=== PATIENT | male | born 1940 | race African-American/Black ===

== ENCOUNTER 2016-05-01 17:27 | Emergency (ER) | payer MEDICARE, MEDICAID ==
[~2016-05-01] VITALS: Ht 182.9 cm; Wt 65.8 kg
[~2016-05-01 17:27] MED LIST: ASPIR 8181 MG ORAL; DIOVAN160 MG ORAL; EYE DROPS15 M1 OP; HYDROCHLOROTHIA25 MG ORAL; HYDROCODON-ACE1 EAC4 ORAL; MULTIVITAMINS1 EAC8 ORAL; PAIN RELIEF325 MG PO; VIAGRA25 MG ORAL
[2016-05-01 17:30] VITALS: BP 141/88
--- NOTE | 2016-05-01 20:20 | Emergency Room Report ---
History of Present Illness General Chief Complaint: Edema Source: Patient Present Illness HPI 75-year-old male presents emergency department complaining of increased swelling in the right lower extremity x1 week with pain. Patient reports 6/10 severity pain mainly in the ankle, and describes tightness in the skin. denies posterior calf pain. Denies trauma or fall. Patient reports intermittent history of lower extremity edema however states it is not to this extent usually. Patient states pain is exacerbated upon weightbearing. Patient denies recent travel. Patient denies nausea, vomiting, fevers, chills. Patient reports mild erythema. Denies bruising or increase in temperature. Patient reports history of high blood pressure and smoking. Denies CP, Palpitations, LOC, AMS, dizziness, Changes in Vision, Sensation, paresthesias, or a sudden severe headache. Allergies: Coded Allergies: No Known Allergies (Verified , 03/05/09) Patient History Past Medical History: old chart reviewed Past Surgical History: none Pertinent Family History: none Social History: Reports: smoking Immunizations: UTD Reviewed Nursing Documentation: PMH: Agreed, PSxH: Agreed Nursing Documentation-PMH Past Medical History: No Stated History Hx Hypertension: Yes - PER RECORD Hx Cancer: No Hx Gastrointestinal Problems: Yes Hx Neurological Problems: No Review of Systems All Other Systems: negative except mentioned in HPI Physical Exam Vital Signs Date Time Temp Pulse Resp B/P Pulse Ox O2 Delivery O2 Flow Rate FiO2 05/01/16 17:18 98.6 68 16 141/88 97 Room Air Sp02 EP Interpretation: reviewed, normal General Appearance: no apparent distress, alert, GCS 15, non-toxic Head: normocephalic, atraumatic Eyes: bilateral eye PERRL, bilateral eye normal inspection ENT: hearing grossly normal, normal pharynx, no angioedema, normal voice Neck: full range of motion, supple/symm/no masses Respiratory: chest non-tender, lungs clear, normal breath sounds, speaking full sentences Cardiovascular #1: regular rate, rhythm, other - 2+ non-pitting edema of the RLE Cardiovascular #2: 0 dorsalis pedis (R) - difficult to palpate pulse in RLE due to swelling. , 2+ dorsalis pedis (L) Gastrointestinal: normal bowel sounds, non tender, soft, no guarding, no rebound Rectal: deferred Genitourinary: normal inspection, no CVA tenderness Musculoskeletal: back normal, gait/station normal, normal range of motion, no calf tenderness, Bo's Sign negative, swelling, tender - RLE Neurologic: alert, oriented x3, responsive, motor strength/tone normal, sensory intact, speech normal Psychiatric: judgement/insight normal, memory normal, mood/affect normal, no suicidal/homicidal ideation Skin: normal color, no rash, warm/dry, well hydrated, other - erythema, no increased temperature to palpation of the RLE, 2+ non pitting edema, and dryness ntoed. Lymphatic: no adenopathy Medical Decision Making PA Attestation Dr. Santiago is my supervising Physician whom patient management has been discussed with. Diagnostic Impression: Primary Impression: Edema Qualified Codes: R60.0 - Localized edema ER Course Pt. presents to the ED c/o lower extremity pain x2 days, unilateral swelling, erythema, no increased temperature to palpation, pt . reports pain described as tightness. Pt. reports hx of intermittent LE edema. denies trauma, denies posterior calf pain. Ddx considered but are not limited to Cellulitis, DVT, varicose vein, PAD, Venous insufficiency Vital signs: are WNL, pt. is afebrile H&PE are most consistent with Venous insufficiency and chronic edema, will r/o DVT. - Review of previous charts pt. presents several times for RLE pain and swelling with last visit one month ago, pt was negative for DVT then, and also infection was excluded as well. ORDERS: CMP: unremarkable, pt. has good renal function and will tolerate lasix. - CBC with Diff: WNL /unremarkable BNP: WNL - LE duplex U/s to R/O dvt. : NEGATIVE FOR DVT. ED INTERVENTIONS: -20mg Lasix DISCHARGE: At this time pt. is stable for d/c to home. Will provide printed patient care instructions, and any necessary prescriptions. Care plan and follow up instructions have been discussed with the patient prior to discharge. Labs Test 05/01/16 21:00 White Blood Count 6.1 K/UL (4.8-10.8) Red Blood Count 4.18 M/UL (4.70-6.10) Hemoglobin 13.1 G/DL (14.2-18.0) Hematocrit 39.6 % (42.0-52.0) Mean Corpuscular Volume 95 FL (80-99) Mean Corpuscular Hemoglobin 31.2 PG (27.0-31.0) Mean Corpuscular Hemoglobin Concent 32.9 G/DL (32.0-36.0) Red Cell Distribution Width 13.2 % (11.6-14.8) Platelet Count 214 K/UL (150-450) Mean Platelet Volume 8.1 FL (6.5-10.1) Neutrophils (%) (Auto) 61.1 % (45.0-75.0) Lymphocytes (%) (Auto) 28.8 % (20.0-45.0) Monocytes (%) (Auto) 8.1 % (1.0-10.0) Eosinophils (%) (Auto) 1.0 % (0.0-3.0) Basophils (%) (Auto) 1.1 % (0.0-2.0) Sodium Level 138 mEQ/L (135-145) Potassium Level 4.5 mEQ/L (3.4-4.9) Chloride Level 98 mEQ/L (98-107) Carbon Dioxide Level 24 mEQ/L (20-30) Anion Gap 16 (5-15) Blood Urea Nitrogen 17 mg/dL (7-23) Creatinine 1.0 mg/dL (0.7-1.2) Estimat Glomerular Filtration Rate mL/min (>60) Glucose Level 133 mg/dL (74-106) Lactic Acid Level 1.80 mmol/L (0.66-2.22) Calcium Level 8.8 mg/dL (8.6-10.2) Total Bilirubin 0.3 mg/dL (0.0-1.2) Aspartate Amino Transf (AST/SGOT) 64 U/L (5-40) Alanine Aminotransferase (ALT/SGPT) 49 U/L (3-41) Alkaline Phosphatase 76 U/L (40-129) Pro-B-Type Natriuretic Peptide 152 pg/mL (0-125) Total Protein 7.3 g/dL (6.6-8.7) Albumin 3.7 g/dL (3.5-5.2) Globulin 3.6 g/dL Albumin/Globulin Ratio 1.0 (1.0-2.7) Last Vital Signs Date Time Temp Pulse Resp B/P Pulse Ox O2 Delivery O2 Flow Rate FiO2 05/01/16 17:30 98.6 70 16 141/88 97 Room Air Disposition: ASSISTED LIVING Condition: Stable Scripts Compression Socks, Medium (FUTURO RESTORING) 1 Each Each 1 EACH , #2 Prov: Ariana Carrasco 05/01/16 Referrals: IGGY SHAW (PCP) Patient Instructions: Edema, [id number] Additional Instructions: Take medications as directed. Follow up with PCP in 3-5 days Return sooner to ED if new symptoms occur, or current symptoms become worse. Ariana Carrasco May 01, 2016 20:20
[2016-05-01 21:19] VITALS: BP 132/81
[2016-05-01 21:28] LABS: BASOPHILS % (AUTO) 1.1 % (0.0-2.0); LYMPHOCYTES % (AUTO) 28.8 % (20.0-45.0); MEAN CORPUSCULAR HEMOGLOBIN 31.2 PG (27.0-31.0); MEAN CORPUSCULAR HGB CONC 32.9 G/DL (32.0-36.0); MEAN CORPUSCULAR VOLUME 95 FL (80-99); MEAN PLATELET VOLUME 8.1 FL (6.5-10.1); MONOCYTES % (AUTO) 8.1 % (1.0-10.0); NEUTROPHILS % (AUTO) 61.1 % (45.0-75.0); PLATELET COUNT 214 K/UL (150-450); RED BLOOD COUNT 4.18 M/UL (4.70-6.10); RED CELL DISTRIBUTION WIDTH 13.2 % (11.6-14.8); WHITE BLOOD COUNT 6.1 K/UL (4.8-10.8)
[2016-05-01 21:51] LABS: ALANINE AMINOTRANSFERASE 49 U/L (3-41); ANION GAP 16 (5-15); ASPARTATE AMINO TRANSFERASE 64 U/L (5-40); CALCIUM 8.8 mg/dL (8.6-10.2); CARBON DIOXIDE 24 mEQ/L (20-30); CHLORIDE 98 mEQ/L (98-107); HEMOLYSIS 98; POTASSIUM 4.5 mEQ/L (3.4-4.9); SODIUM 138 mEQ/L (135-145); TOTAL PROTEIN 7.3 g/dL (6.6-8.7)
[2016-05-01] MEDS ORDERED: FUTURO RESTORI1 EACH MC (22:19)
[2016-05-01 23:08] VITALS: BP 129/81
[2016-05-01 23:11] VITALS: BP 132/81
--- NOTE | 2016-05-04 17:07 | Diagnostic Imaging Report ---
APPROVED REPORT CPT Code: 24224 Present Symptoms Lower Extremity Edema: Right Right leg edema from calf to foot. RIGHT LEG: Venous imaging reveals a patent deep venous system. There is no evidence of thrombus within the femoral, popliteal or tibial segments. The greater saphenous vein is also within normal limits. Doppler indicates normal spontaneous flow within these segments. Slightly less evident posterior tibial venous flow compared to previous ultrasound 03/28/2016.
== END 2016-05-01 23:11 | disposition home or self-care (01) ==
LOC: EDBD 17:27 → EMR 17:55
DX: R60.9 Edema, unspecified (principal); I10 Essential (primary) hypertension
CPT/HCPCS: 36415; 80053; 83605; 83880; 85025; 93971; 99283

== ENCOUNTER 2019-02-16 04:14 | Emergency (ER) | payer MEDICARE, MEDICAID ==
[~2019-02-16] VITALS: Ht 170.2 cm; Wt 65.8 kg
[~2019-02-16 04:14] MED LIST changes: +FUTURO RESTORI1 EACH MC
[2019-02-16 04:20] VITALS: BP 115/75
--- NOTE | 2019-02-16 04:20 | NUR ---
ED Nurse Note: PT IS AAOX3, VSS, WITH NO ACUTE DISTRESS. PATIENT PRESENTS WITH COMPLAINTS OF LACERATION AT FACE PATIENT IS FROM [facility]. PT REPORTED FALLING AND HITTING HIS HEAD AT THE SNF. PT DENIES LOOSING CONSCIOUSNESS.
[2019-02-16] MEDS ORDERED: Tetanus/Diptheria/Pertussis IM ONE (04:30)
--- NOTE | 2019-02-16 04:30 | NUR ---
ED Nurse Note: PT WITH
--- NOTE | 2019-02-16 04:35 | NUR ---
ED Nurse Note: MD SUTURED PT WOUND ON FOREHAD.
--- NOTE | 2019-02-16 04:44 | Emergency Room Report ---
History of Present Illness General Chief Complaint: Laceration Source: Patient, Medical Record Present Illness HPI 78-year-old male hx of CVA, contractures, not on blood thinners presents with mechanical fall patient will be over in bed, hit his right forehead, no LOC no nausea no vomiting chest pain shortness of breath, patient denies any neck pain , he does endorse some headache, mild, no aggravating leaving factors severity is been mild patient presents for laceration repair Allergies: Coded Allergies: No Known Allergies (Verified , 03/05/09) Patient History Past Medical History: see triage record Reviewed Nursing Documentation: PMH: Agreed; PSxH: Agreed Nursing Documentation-PMH Hx Hypertension: Yes Hx Cancer: No Hx Gastrointestinal Problems: Yes Hx Neurological Problems: No Hx Cerebrovascular Accident: Yes Review of Systems All Other Systems: negative except mentioned in HPI Physical Exam Vital Signs Date Time Temp Pulse Resp B/P (MAP) Pulse Ox O2 Delivery O2 Flow Rate FiO2 02/16/19 04:12 98.4 91 16 129/79 (96) 100 Room Air General Appearance: well appearing, no apparent distress Head: normocephalic, other - Forehead laceration 5 cm Eyes: bilateral eye PERRL, bilateral eye EOMI ENT: hearing grossly normal, normal voice, moist mucus membranes Neck: full range of motion, supple, no bony tend Respiratory: no respiratory distress, speaking full sentences Cardiovascular #1: regular rate, rhythm, no murmur Gastrointestinal: non tender, soft Musculoskeletal: other - contractures present Neurologic: alert, responsive, other - weaker right side Psychiatric: mood/affect normal Skin: no rash Procedures Critical Care Time Critical Care Time Given the critical condition in which the patient arrived, the patient was immediately assessed by myself and the nurse, and cardiac monitoring initiated due to the potential for rapid decompensation of the patient's clinical condition. During the course of the patient's stay, I spent a considerable amount of time at the bedside performing serial re-evaluations of the patient's hemodynamic and clinical status because of the recognized potential threat to life or limb in this condition. I then had a chance to review not only all of the available current laboratory and radiographic studies obtained today, but I also reviewed old records available to me at the time. Additionally, any ancillary information available including piecer records were reviewed. Sequential vital signs were obtained. Critical Care time of 31 minutes was performed exclusive of billable procedures. Laceration/Wound Repair Laceration/Wound Repair : Consent: Verbal Wound Location: head Wound's Depth, Shape: superficial Wound Length (cm): 5 Wound Explored: clean Irrigated w/ Saline (ccs): 100 Betadine Prep?: Yes Anesthesia: 1% Lidocaine Volume Anesthetic (ccs): 5 Wound Debrided: None Wound Repaired With: sutures Suture Size/Type: 5:0 Number of Sutures: 8 Patient Tolerated: Well Complications: None Medical Decision Making Diagnostic Impression: Primary Impression: Laceration Additional Impressions: Closed head injury Qualified Codes: S09.90XA - Unspecified injury of head, initial encounter Intracranial bleed ER Course Patient with closed head injury, mechanical fall, fell from bed, low susp for syncope, acs, will evaluate for possible head bleed. Patient with no C-spine tenderness Nexus criteria negative. Laceration repaired, unremarkable. CT Scan shows intracranial hemorrhage Spoke with Ryan at 6:25 AM, they are working on obtaining a ICU bed Patient will be transferred for higher level of care. Patient signed out to Dr. Paredes 6:30AM Spoke with Dr. Walls who will accept patient ICU [facility]. Spoke with Neuro Gypsum Calciner 6:59AM accepting patient Disposition [facility] CT/MRI/US Diagnostic Results CT/MRI/US Diagnostic Results : Impression Preliminary Findings Only See Final Report For Complete Findings CT HEAD Without Contrast: Comparison: 03/04/09 A 1 cm acute intraparenchymal hemorrhage is seen within the right basal ganglia. Periventricular small vessel ischemic change. Also thickening with air-fluid level seen in the right maxillary sinus, similar prior study. Mucosal thickening is also seen involving the right anterior ethmoid air cells. Chronic right lamina papyracea fracture again noted. Mastoid air cells are clear. Radiologist: Juliano Rainey MD Study ready at 05:54 and initial results transmitted at 06:31 Critical Value Communications Clear Time Type Notes 02/16/19 06:31 Call Doctor Regarding Intracranial Hemorrhage, called Dr. Lucas on 02/16 06:30 (-08:00) Last Vital Signs Date Time Temp Pulse Resp B/P (MAP) Pulse Ox O2 Delivery O2 Flow Rate FiO2 02/16/19 04:20 98.8 16 115/75 100 Room Air 02/16/19 04:12 91 Disposition: XFER [facility] - [facility] Condition: Serious Referrals: Camden Angeles MD (PCP) Jaya Leon MD Feb 16, 2019 04:44
--- NOTE | 2019-02-16 05:00 | NUR ---
ED Nurse Note: Pt back from CT
[2019-02-16] MEDS ORDERED: LORazepam 1mg tab ORAL ONE (05:15)
--- NOTE | 2019-02-16 05:18 | NUR ---
ED Nurse Note: PT MEDICATED; TOLERATED WELL. CALM AND COOPERATIVE. PT BACK TO CT WITH RADIOLOGY TEXT AND SOUMYA GOTTI.
--- NOTE | 2019-02-16 05:41 | NUR ---
ED Nurse Note: patient back from ct. patient tolerated well. repositioned for comfort. dimmed lights. paitent calm and resting with no acute distress
[2019-02-16 05:44] VITALS: BP 115/75
--- NOTE | 2019-02-16 06:30 | NUR ---
ED Nurse Note: iv access established. blood collected; sent down to lab.
--- NOTE | 2019-02-16 06:31 | Diagnostic Imaging Report ---
Indications: Forehead laceration, status post fall Technique: Spiral acquisitions obtained through the brain. Angled axial and coronal 5 x 5 mm slices were reconstructed. Total dose length product 1683 mGycm. CTDI vol(s) 74 mGy. Dose reduction achieved using automated exposure control Comparison: 03/04/2009 Findings: There is image degradation due to motion artifact. There is a small focal hemorrhage within the right thalamus extending into the genu of the internal capsule, measuring 10 x 4 mm, possibly demonstrating some surrounding edema. This does not result in any significant mass effect. There is an old infarct in the left thalamus which was not evident previously. Old lacunar infarct is also seen in the right cerebellar hemisphere and another in the left caudate head. There is generalized age-related enlargement of the ventricles and extra axial CSF spaces. There is fairly extensive periventricular deep white matter low-attenuation, consistent with chronic microvascular ischemic change. Encephalomalacia is seen in the high left parasagittal parietal lobe, consistent with old infarct. There is a right maxillary sinus air-fluid level. There is chronic appearing medial deviation of the right medial maxillary wall. There is some ethmoid sinus disease on the right. The calvarium is intact. Impression: Positive for 10 x 4 mm right thalamic acute intraparenchymal hemorrhage. This does not result in any significant mass effect Multiple old infarcts, as described Chronic and age-related changes Sinus disease as described This agrees with the preliminary interpretation provided overnight by [facility] teleradiology service. The CT scanner at [facility] is accredited by the [employer] and the scans are performed using protocols designed to limit radiation exposure to as low as reasonably achievable to attain images of sufficient resolution adequate for diagnostic evaluation.
[2019-02-16] MEDS ORDERED: levETIRAcetam 1,000mg/NS100ml 100 ML IVPB ONE (06:45)
--- NOTE | 2019-02-16 06:46 | NUR ---
ED Nurse Note: ekg done at bedside by hina
[2019-02-16 06:56] LABS: BASOPHILS % (AUTO) 0.8 % (0.0-2.0); EOSINOPHILS % (AUTO) 0.1 % (0.0-3.0); HEMATOCRIT 36.9 % (42.0-52.0); HEMOGLOBIN 11.8 G/DL (14.2-18.0); MEAN CORPUSCULAR VOLUME 87 FL (80-99); PLATELET COUNT 331 K/UL (150-450); RED BLOOD COUNT 4.22 M/UL (4.70-6.10); RED CELL DISTRIBUTION WIDTH 13.2 % (11.6-14.8); WHITE BLOOD COUNT 6.9 K/UL (4.8-10.8)
[2019-02-16 07:09] LABS: ANION GAP 8 mmol/L (5-15); BLOOD UREA NITROGEN 18 mg/dL (7-18); CALCIUM 9.2 MG/DL (8.5-10.1); CARBON DIOXIDE 27 MMOL/L (21-32); CHLORIDE 104 MMOL/L (98-107); CREATININE 1.1 MG/DL (0.55-1.30); POTASSIUM 4.2 MMOL/L (3.5-5.1); SODIUM 139 MMOL/L (136-145)
[2019-02-16 07:13] LABS: ALANINE AMINOTRANSFERASE 34 U/L (12-78); ALBUMIN 3.2 G/DL (3.4-5.0); ALBUMIN/GLOBULIN RATIO 0.7 (1.0-2.7); ALKALINE PHOSPHATASE 99 U/L (46-116); ASPARTATE AMINO TRANSFERASE 47 U/L (15-37); BILIRUBIN,TOTAL 0.7 MG/DL (0.2-1.0)
[2019-02-16 07:20] VITALS: BP 118/74
--- NOTE | 2019-02-16 07:20 | NUR ---
ED Nurse Note: Received patient in bed on a cottage parent, patient was easily arousable by shaking and voice. IV site intact, patent. patient is alert awake x3.
--- NOTE | 2019-02-16 08:02 | NUR ---
ED Nurse Note: report given to Valerie GOTTI at [facility]. endorsed all plan of care to Valerie GOTTI.
--- NOTE | 2019-02-16 09:30 | NUR ---
ED Nurse Note: patient is alert awake x3 able to use urinal with some assistance, patient explained and educated not to eat anything by mouth at this time.
[2019-02-16 09:37] VITALS: BP 128/80
--- NOTE | 2019-02-16 10:35 | NUR ---
ED Nurse Note: patient is being transferred via [facility] report given to Matthews RN for ambulance transport. patient is alert awake x 3 breathing unlabored and even.
[2019-02-16 10:36] VITALS: BP 128/78
[2019-02-16 10:37] VITALS: BP 128/80
--- NOTE | 2019-02-16 10:41 | NUR ---
ED Nurse Note: patient initially had 1 brown wallet and 1 watch on his left wrist. endorsed all belongings to Matthews RN. patient left with all of his belongings.
--- NOTE | 2019-02-16 11:40 | Diagnostic Imaging Report ---
Indication: Cough, preop Technique: One view of the chest Comparison: 06/17/2013 Findings: A small focal area of reticular opacity is seen in the left upper lung peripherally, not evident previously. The remainder of the lungs and pleural spaces are clear. Impression: Small reticular opacity in the left upper lung periphery. Recommend follow-up radiographs, with consideration for CT scan. The lesion fills result Clear lungs otherwise
--- NOTE | 2019-02-19 11:29 | Cardiology Report ---
APPROVED REPORT EKG Measurement Heart [id number] Sinus rhythm with 1st degree AV block with occasional premature ventricular complexes Anterior infarct, age undetermined Abnormal ECG
== END 2019-02-16 10:48 | disposition short-term general hospital (02) ==
LOC: EDBD 04:14 → EMR 04:33
DX: S01.91XA Laceration without foreign body of unspecified part of head, initial encounter (principal); S09.90XA Unspecified injury of head, initial encounter; W19.XXXA Unspecified fall, initial encounter; Y92.9 Unspecified place or not applicable; I10 Essential (primary) hypertension; Z86.73 Personal history of transient ischemic attack (TIA), and cerebral infarction without residual deficits; Z23 Encounter for immunization; I62.9 Nontraumatic intracranial hemorrhage, unspecified; I44.0 Atrioventricular block, first degree
CPT/HCPCS: 12013; 36415; 70450; 71045; 80053; 85025; 85610; 85730; 90471; 90715; 93005; 96374; 99291; J1953